=== PATIENT | male | born 1990 | race African-American/Black ===

== ENCOUNTER 2019-05-07 11:42 | Emergency (ER) | payer OTHER ==
[~2019-05-07] VITALS: Ht 188 cm; Wt 113.4 kg
[~2019-05-07 11:42] MED LIST: PHENERGAN 25 MG25 M1 PO
[2019-05-07 11:58] LABS: URINE BILIRUBIN NEGATIVE (Negative); URINE BLOOD NEGATIVE (Negative); URINE CLARITY CLEAR; URINE COLOR YELLOW; URINE GLUCOSE-RANDOM* NEGATIVE (Negative); URINE KETONES NEGATIVE (Negative); URINE LEUKOCYTES-REFLEX NEGATIVE (Negative); URINE NITRITE-REFLEX NEGATIVE (Negative); URINE PROTEIN (DIPSTICK) NEGATIVE (Negative); URINE SPECIFIC GRAVITY 1.015 (1.005-1.035); URINE UROBILINOGEN 0.2 E.U./dl (0.2-1.0)
[2019-05-07 12:53] LABS: CALCIUM 9.6 mg/dL (8.5-10.1); POTASSIUM 3.7 mmol/L (3.5-5.1)
[2019-05-07 12:54] LABS: BASOPHILS 0.9 % (0.0-2.0); EOSINOPHILS 1.7 % (0.0-3.0); HEMATOCRIT 47.1 % (42.0-52.0); HEMOGLOBIN 14.6 gm/dL (14.0-18.0); LYMPHOCYTES 38.5 % (24.0-44.0); MCH 21.5 pg (26.0-34.0); MCHC 31.1 g/dL (28.0-37.0); MCV 69.2 fL (80.0-100.0); MONOCYTES 5.5 % (1.0-8.0); PLATELET COUNT 198 thou/uL (150-400); POLYS 53.4 % (36.0-66.0); RBC 6.81 mil/uL (4.50-6.00); RDW 15.5 % (10.5-14.5); WBC 5.6 thou/uL (4.0-11.0)
[2019-05-07 12:59] LABS: ALBUMIN 4.5 g/dL (3.4-5.0); TOTAL BILIRUBIN 0.5 mg/dL (<0.1-1.0); TOTAL PROTEIN 8.3 g/dL (6.4-8.2)
[2019-05-07 13:34] LABS: ANISOCYTOSIS 2+; MICROCYTES 1+; PLATELET ESTIMATE NORMAL
[2019-05-07] MEDS ORDERED: MOBIC7.5 MG PO (14:01)
[2019-05-07] MEDS ORDERED: CIPRO500 M1 PO (14:16)
[2019-05-07] MEDS ORDERED: FLAGYL500 M1 PO (14:16)
[2019-05-07 14:28] VITALS: BP 127/88
== END 2019-05-07 14:30 | disposition home or self-care (01) ==
LOC: ER 11:42
PROVIDERS: Physician Assistant
DX: R10.32 Left lower quadrant pain (principal)